=== PATIENT | female | born 1940 | race Caucasian/White ===

== ENCOUNTER → 2018-05-17 | Outpatient (CLI) | payer MEDICARE, OTHER ==
[~2018-05-17] MED LIST: AMLODIPINE 2.5 PO; ASPI81CH; ASPI81CH PO; BENA20 PO; CALC1.25T PO; CHOL10002 PO; ENOX40I SC; FISH1000 PO; FLAX PO; GLUCOSAMINE/MSM PO; HYDACE10B PO; MAXIMUM DAILY1 EACH PO; MECL25 PO; ONDA8 PO; PYRI100 PO; RANI150 PO; VOLTAREN 1% GEL TOP; [UNRECOGNIZED DRUG - OTHER] PO
[2018-05-17 10:42] LABS: BASOPHILS ABSOLUTE AUTO 0.04 K/mm3 (0.00-0.23); BASOPHILS PERCENT AUTO 0 % (0-2); EOSINOPHILS ABSOLUTE AUTO 0.22 K/mm3 (0.00-0.68); EOSINOPHILS PERCENT AUTO 3 % (0-6); Hematocrit 36.2 % (33.0-51.0); Hemoglobin 12.5 g/dL (11.5-16.0); IMMATURE GRAN ABSOLUTE AUTO 0.03 K/mm3 (0.00-0.10); IMMATURE GRAN PERCENT AUTO 0 % (0-1); LYMPHOCYTES ABSOLUTE AUTO 1.31 K/mm3 (0.84-5.20); LYMPHOCYTES PERCENT AUTO 15 % (21-46); MONOCYTES ABSOLUTE AUTO 0.86 K/mm3 (0.16-1.47); MONOCYTES PERCENT AUTO 10 % (4-13); Mean Corpuscular HGB 30.9 pg (26.0-34.0); Mean Corpuscular HGB Conc 34.5 g/dL (31.5-36.5); Mean Corpuscular Volume 89 fL (80-100); Mean Platelet Volume 9.4 fL (9.1-12.4); NEUTROPHILS ABSOLUTE AUTO 6.43 K/mm3 (1.96-9.15); NEUTROPHILS PERCENT AUTO 72 % (41-73); Platelet Count 244 K/mm3 (150-400); RDW Coefficient Variation 14.2 % (11.7-14.2); RDW Standard Deviation 46.7 fL (35.1-46.3); Red Blood Cell Count 4.05 M/mm3 (3.80-5.20); White Blood Cell Count 8.89 K/mm3 (4.00-11.30)
[2018-05-17 10:53] LABS: Albumin, Blood 3.5 g/dL (3.4-5.0); Albumin/Globulin Ratio 0.9 (0.8-1.8); Bilirubin, Total 0.4 mg/dL (0.1-1.0); Bun/Creatinine Ratio 11.9 (12.0-20.0); Calcium, Blood 8.7 mg/dL (8.5-10.1); Creatinine, Blood 1.09 mg/dL (0.40-1.00); Globulin, Blood 4.1 g/dL (2.2-4.0); Potassium, Blood 3.9 mmol/L (3.5-5.5); Total Protein, Blood 7.6 g/dL (6.4-8.2)
[2018-05-17 11:51] LABS: Red Blood Cells, Urine 0-2 /hpf (0-2); White Blood Cells, Urine 0-2 /hpf (0-5)
[2018-05-17 11:52] LABS: Bacteria Not Seen /hpf; Squamous Epithelial Cells Rare /hpf (Few)
[2018-05-17 15:21] LABS: Adenovirus F 40/41 Not Detected (NOT DETECT); Astrovirus Not Detected (NOT DETECT); Campylobacter Sp Not Detected (NOT DETECT); Cryptosporidium Not Detected (NOT DETECT); Cyclospora Cayetanensis Not Detected (NOT DETECT); E. Coli O157 Not Detected (NOT DETECT); Entamoeba Histolytica Not Detected (NOT DETECT); Enteroaggregative E. coli-EAEC Not Detected (NOT DETECT); Enteropathogenic E. coli-EPEC Not Detected (NOT DETECT); Enterotoxigenic E. coli-ETEC Not Detected (NOT DETECT); Giardia Lamblia Not Detected (NOT DETECT); Norovirus GI/GII Not Detected (NOT DETECT); Plesiomonas Shigelloides Not Detected (NOT DETECT); Rotavirus A Not Detected (NOT DETECT); Salmonella Sp Not Detected (NOT DETECT); Sapovirus Not Detected (NOT DETECT); Shiga Toxin-prod E. coli-STEC Not Detected (NOT DETECT); Shigella/Enteroin E. coli-EIEC Not Detected (NOT DETECT); Vibrio Cholerae Not Detected (NOT DETECT); Vibrio Sp Not Detected (NOT DETECT); Yersinia Enterocolitica Not Detected (NOT DETECT)
== END | disposition home or self-care (01) ==
LOC: LAB EV 10:38 → LAB SHORT 10:38
PROVIDERS: General Practice
DX: K57.92 Diverticulitis of intestine, part unspecified, without perforation or abscess without bleeding (principal); R10.32 Left lower quadrant pain; R82.90 Unspecified abnormal findings in urine
CPT/HCPCS: 80053; 81015; 85025; 87086; 87507

== ENCOUNTER 2018-11-28 06:01 | Day surgery (SDC) | payer MEDICARE, OTHER ==
[~2018-11-28] VITALS: Ht 160 cm; Wt 80.9 kg
[~2018-11-28 06:01] MED LIST changes: +Azor 5-20 MG T1 EACH PO; +COQ1050 MG PO; -FISH1000 PO; +Fish Oil PO; +GLUCOSAMINE CH1 EAC3 PO; +OCEAN SPRAY; -RANI150 PO; +SYSTANE GEL EYE10 ML BOTHEYES; +TURMERIC PO; +VITAMIN B PO; +Zantac150 MG PO; +[UNRECOGNIZED DRUG - CODE] PO
--- NOTE | 2018-11-28 06:28 | NUR ---
INTO SDS. ADMISSION STARTED TO UNIT Surgical site prepped with 2% Chlorhexidine cloth wipe. Lungs clear T/O to Auscultation. History, Chart, Medications and Allergies reviewed before start of procedure.Patient confirms NPO status and agrees with scheduled surgery.
--- NOTE | 2018-11-28 07:45 | NUR ---
INTERNAL MEDICINE SPECIALIST HERE TO SEE PATIENT AT 0732 AND THEN PATIENT UP TO BATHROOM AFTER SEEING INTERNAL MEDICINE SPECIALIST.
--- NOTE | 2018-11-28 08:41 | NUR ---
11/28/18 0840 Juanjose Mckeon SPINAL ATTEMPTED PER DR. MARIA.
--- NOTE | 2018-11-28 11:55 | NUR ---
1130 OUT O BED 2 PERSON ASSIST OOB TO COMMODE. PATIENT STANDBY ASSIST, SEADY ON FEET. PATIENT VOIDED CLEAR YELLOW URINE. PATIENT REPORTS PAIN 5/10 MEDICATED OR PAIN. PATIENT DENIES NAUSEA
--- NOTE | 2018-11-28 17:48 | NUR ---
summary PATIENT SITTING IN CHAIR, REPORTS PAIN LEVEL IS CURRENTLY 3, DENIES NAUSEA. PATIENT UP TO COMMODE WITH 1 PERSON ASSIST TO VOID
[2018-11-29 04:27] LABS: BASOPHILS ABSOLUTE AUTO 0.03 K/mm3 (0.00-0.23); BASOPHILS PERCENT AUTO 0 % (0-2); EOSINOPHILS ABSOLUTE AUTO 0.07 K/mm3 (0.00-0.68); EOSINOPHILS PERCENT AUTO 1 % (0-6); Hematocrit 34.1 % (33.0-51.0); Hemoglobin 11.7 g/dL (11.5-16.0); IMMATURE GRAN ABSOLUTE AUTO 0.03 K/mm3 (0.00-0.10); IMMATURE GRAN PERCENT AUTO 0 % (0-1); LYMPHOCYTES ABSOLUTE AUTO 1.11 K/mm3 (0.84-5.20); LYMPHOCYTES PERCENT AUTO 11 % (21-46); MONOCYTES PERCENT AUTO 10 % (4-13); Mean Corpuscular HGB Conc 34.3 g/dL (31.5-36.5); Mean Corpuscular Volume 90 fL (80-100); Mean Platelet Volume 9.2 fL (9.1-12.4); NEUTROPHILS ABSOLUTE AUTO 7.92 K/mm3 (1.96-9.15); NEUTROPHILS PERCENT AUTO 78 % (41-73); Platelet Count 212 K/mm3 (150-400); RDW Coefficient Variation 14.6 % (11.7-14.2); RDW Standard Deviation 48.4 fL (35.1-46.3); Red Blood Cell Count 3.78 M/mm3 (3.80-5.20); White Blood Cell Count 10.16 K/mm3 (4.00-11.30)
[2018-11-29 04:47] LABS: Bun/Creatinine Ratio 13.8 (12.0-20.0); Calcium, Blood 8.9 mg/dL (8.5-10.1); Creatinine, Blood 1.09 mg/dL (0.40-1.00); Magnesium, Blood 2.1 mg/dL (1.6-2.4)
--- NOTE | 2018-11-29 07:36 | NUR ---
SHIFT SUMMARY PT A&O X4 T/O SHIFT. POD#1 L TKA; DRESSING CDI; CRYOTHERAPY TO L KNEE; PPPX4; PAIN MANAGED PER EMAR. PT DENIED NAUSEA, SOB, CP AND N/T IN EXT T/O SHIFT. UP WITH FWW, SBA AND GB TO TOILET. SCD'S AND BOBBY'S TO BLE'S. CALL LIGHT IN REACH; PT DEMONSTRATES USE. REPORT GIVEN TO DAY SHIFT RN.
--- NOTE | 2018-11-29 08:05 | NUR ---
DRESSING CHANGE DR OLIVAS HERE, REMOVED POST OP DRESSING AND APPLIED AQUACELL TO LEFT KNEE
[2018-11-29] MEDS ORDERED: Norco 5-325 Ta1 EACH PO (08:36)
[2018-11-29] MEDS ORDERED: ENOX40I SC (08:36)
[2018-11-29] MEDS ORDERED: ASPI325EC PO (08:37)
[2018-11-29] MEDS ORDERED: PROM25 PO (08:37)
--- NOTE | 2018-11-29 14:48 | NUR ---
1435 discharged home accompanied by daughter
--- NOTE | 2018-11-29 15:01 | NUR ---
Patient is sitting on a chair with daughter bedside. I conducted a life review, explored patient's belief system and established therapuetic alliance. Patient shared about the loss of her and got a bit teary eyed. Patient also shared about her surgery and where her family is and what they are up to. I listened empathically, and provided grief support, pastoral rehab/pre vocational counselor and prayer. Patient responded well and displayed evidence of restored hope.
== END 2018-11-29 14:38 | disposition home or self-care (01) ==
LOC: ORSCMMR 06:01 → ORD 07:30 → ORSCMMR 11:06 → SURS 11:06 → ORSCMMR 11-29 14:38
PROVIDERS: Orthopaedic Surgery
PROC: 8E0YXBZ Computer Assisted Procedure of Lower Extremity (ICD-10-PCS; principal; 2018-11-28 07:30)
PROC: 0SRD0J9 Replacement of Left Knee Joint with Synthetic Substitute, Cemented, Open Approach (ICD-10-PCS; principal; 2018-11-28 07:30)
DX: M17.12 Unilateral primary osteoarthritis, left knee (principal); I10 Essential (primary) hypertension; K21.9 Gastro-esophageal reflux disease without esophagitis; Z79.82 Long term (current) use of aspirin; Z79.899 Other long term (current) drug therapy
CPT/HCPCS: 36415; 73560-LT; 80048; 83735; 85025; 88300; 97110; 97116; 97162; A9270-GY; C1713; C1776; J0171; J0690; J0735; J1100; J1650; J1885; J2250; J2370; J2405; J2704; J2795; J3010; J3370; J7120

== ENCOUNTER → 2019-03-24 | Outpatient (CLI) | payer MEDICARE, OTHER ==
[~2019-03-24] MED LIST changes: +ASPI325EC PO; +Norco 5-325 Ta1 EACH PO; +PROM25 PO
[2019-03-25 13:37] LABS: Stool Occult Bld Immuno 1 Negative (NEGATIVE)
== END | disposition home or self-care (01) ==
LOC: LAB 08:20 → LAB SHORT 08:20
PROVIDERS: Family Medicine
DX: Z12.11 Encounter for screening for malignant neoplasm of colon (principal)
CPT/HCPCS: G0328

== ENCOUNTER 2020-05-29 10:18 | Day surgery (SDC) | payer MEDICARE, OTHER ==
[~2020-05-29] VITALS: Ht 157.9 cm; Wt 78.9 kg
[~2020-05-29 10:18] MED LIST changes: +EDARBI80 MG
[2020-05-29] MEDS ORDERED: AMLO5 PO (11:03)
[2020-05-29] MEDS ORDERED: FAMO10 PO (11:04)
--- NOTE | 2020-05-29 11:24 | NUR ---
05/29/20 1124 Kimberly Sanon BUPIVACAINE 0.5% 30 MLS MIXED WITH EPI 0.15ML TO MAKE BUPIVACAINE 0.5% 1:200,[address] ARGUELLES.
== END 2020-05-29 12:58 | disposition home or self-care (01) ==
LOC: ORSCSDS 10:18
PROVIDERS: Podiatrist Foot & Ankle Surgery
PROC: 0SGM04Z Fusion of Right Metatarsal-Phalangeal Joint with Internal Fixation Device, Open Approach (ICD-10-PCS; principal; 2020-05-29 11:30)
DX: M20.21 Hallux rigidus, right foot (principal); M20.5X1 Other deformities of toe(s) (acquired), right foot; I10 Essential (primary) hypertension; N18.9 Chronic kidney disease, unspecified; Z79.899 Other long term (current) drug therapy
CPT/HCPCS: C1713; C1769; J0171; J0690; J1100; J1885; J2405; J2704; J3010; J7120

== ENCOUNTER → 2021-03-16 | Outpatient (CLI) | payer MEDICARE, OTHER ==
[~2021-03-16] MED LIST changes: +AMLO5 PO; +FAMO10 PO
== END | disposition home or self-care (01) ==
LOC: LAB 15:43 → LAB SHORT 15:43
DX: C44.319 Basal cell carcinoma of skin of other parts of face (principal)
CPT/HCPCS: 88305

== ENCOUNTER 2021-08-09 12:14 | Emergency (ER) | payer MEDICARE, OTHER ==
[~2021-08-09] VITALS: Ht 157.5 cm; Wt 81.7 kg
[2021-08-09 12:55] LABS: BASOPHILS ABSOLUTE AUTO 0.07 K/mm3 (0.00-0.23); BASOPHILS PERCENT AUTO 1 % (0-2); EOSINOPHILS ABSOLUTE AUTO 0.13 K/mm3 (0.00-0.68); EOSINOPHILS PERCENT AUTO 2 % (0-6); Hematocrit 39.8 % (33.0-51.0); Hemoglobin 13.6 g/dL (11.5-16.0); IMMATURE GRAN ABSOLUTE AUTO 0.02 K/mm3 (0.00-0.10); IMMATURE GRAN PERCENT AUTO 0 % (0-1); LYMPHOCYTES ABSOLUTE AUTO 1.29 K/mm3 (0.84-5.20); LYMPHOCYTES PERCENT AUTO 20 % (21-46); MONOCYTES ABSOLUTE AUTO 0.54 K/mm3 (0.16-1.47); MONOCYTES PERCENT AUTO 8 % (4-13); Mean Corpuscular HGB 30.4 pg (26.0-34.0); Mean Corpuscular HGB Conc 34.2 g/dL (31.5-36.5); Mean Corpuscular Volume 89 fL (80-100); Mean Platelet Volume 9.7 fL (9.1-12.4); NEUTROPHILS ABSOLUTE AUTO 4.49 K/mm3 (1.96-9.15); NEUTROPHILS PERCENT AUTO 69 % (41-73); Platelet Count 244 K/mm3 (150-400); RDW Coefficient Variation 14.9 % (11.7-14.2); RDW Standard Deviation 48.6 fL (35.1-46.3); Red Blood Cell Count 4.47 M/mm3 (3.80-5.20); White Blood Cell Count 6.54 K/mm3 (4.00-11.30)
[2021-08-09 13:21] LABS: Albumin, Blood 3.9 g/dL (3.4-5.0); Bilirubin, Total 0.3 mg/dL (0.1-1.0); Bun/Creatinine Ratio 15.2 (12.0-20.0); Calcium, Blood 9.7 mg/dL (8.5-10.1); Creatinine, Blood 1.38 mg/dL (0.40-1.00); Potassium, Blood 4.4 mmol/L (3.5-5.5); Total Protein, Blood 7.9 g/dL (6.4-8.2)
[2021-08-09] MEDS ORDERED: Pepcid20 MG PO (16:04)
== END 2021-08-09 16:20 | disposition home or self-care (01) ==
LOC: ER 12:14
PROVIDERS: Physician Assistant
DX: K44.9 Diaphragmatic hernia without obstruction or gangrene (principal); R42 Dizziness and giddiness; Z88.2 Allergy status to sulfonamides; Z88.8 Allergy status to other drugs, medicaments and biological substances; Z88.5 Allergy status to narcotic agent; Z91.018 Allergy to other foods; Z79.899 Other long term (current) drug therapy; I10 Essential (primary) hypertension
CPT/HCPCS: 36415; 71045; 71275; 80053; 84484; 85025; 93005; 93010; 99285-25; Q9967

== ENCOUNTER → 2022-03-07 | Outpatient (CLI) | payer MEDICARE, OTHER ==
[~2022-03-07] MED LIST changes: +Pepcid20 MG PO; +SUCR1 PO
== END | disposition home or self-care (01) ==
LOC: LAB 13:42 → LAB SHORT 13:42
DX: M54.50 Low back pain, unspecified (principal); R82.998 Other abnormal findings in urine
CPT/HCPCS: 87077; 87086; 87186

== ENCOUNTER → 2022-09-20 | Outpatient (CLI) | payer MEDICARE, OTHER | END | disposition home or self-care (01) | LOC: LAB 17:14 → LAB SHORT 17:14 | DX: N30.00 Acute cystitis without hematuria (principal) | CPT/HCPCS: 87077; 87086; 87186 ==

== ENCOUNTER → 2022-10-10 | Outpatient (CLI) | payer MEDICARE, OTHER | END | disposition home or self-care (01) | LOC: LAB SHORT 13:40 → LAB 13:40 | DX: N39.0 Urinary tract infection, site not specified (principal) | CPT/HCPCS: 87086 ==

== ENCOUNTER → 2023-06-14 | Outpatient (CLI) | payer MEDICARE, OTHER | LOC: LAB 11:08 → LAB SHORT 11:08 | DX: N10 Acute pyelonephritis (principal) | CPT/HCPCS: 87086 ==

== ENCOUNTER → 2023-08-07 | Outpatient (CLI) | payer MEDICARE, OTHER | END | disposition home or self-care (01) | LOC: LAB 13:23 → LAB SHORT 13:23 | DX: N39.0 Urinary tract infection, site not specified (principal) | CPT/HCPCS: 87086 ==

== ENCOUNTER 2023-11-15 12:49 | Emergency (ER) | payer MEDICARE, OTHER ==
[~2023-11-15] VITALS: Ht 162.6 cm; Wt 88.0 kg
[2023-11-15 12:50] VITALS: BP 209/86
[2023-11-15 13:11] LABS: BASOPHILS ABSOLUTE AUTO 0.07 K/mm3 (0.00-0.23); BASOPHILS PERCENT AUTO 1 % (0-2); EOSINOPHILS ABSOLUTE AUTO 0.13 K/mm3 (0.00-0.68); EOSINOPHILS PERCENT AUTO 2 % (0-6); Hematocrit 41.2 % (33.0-51.0); Hemoglobin 14.2 g/dL (11.5-16.0); IMMATURE GRAN ABSOLUTE AUTO 0.03 K/mm3 (0.00-0.10); IMMATURE GRAN PERCENT AUTO 0 % (0-1); LYMPHOCYTES ABSOLUTE AUTO 1.54 K/mm3 (0.84-5.20); LYMPHOCYTES PERCENT AUTO 21 % (21-46); MONOCYTES ABSOLUTE AUTO 0.64 K/mm3 (0.16-1.47); MONOCYTES PERCENT AUTO 9 % (4-13); Mean Corpuscular HGB 30.5 pg (26.0-34.0); Mean Corpuscular HGB Conc 34.5 g/dL (31.5-36.5); Mean Corpuscular Volume 89 fL (80-100); Mean Platelet Volume 9.4 fL (9.1-12.4); NEUTROPHILS ABSOLUTE AUTO 4.97 K/mm3 (1.96-9.15); NEUTROPHILS PERCENT AUTO 67 % (41-73); Platelet Count 230 K/mm3 (150-400); RDW Coefficient Variation 14.3 % (11.7-14.2); Red Blood Cell Count 4.65 M/mm3 (3.80-5.20); White Blood Cell Count 7.38 K/mm3 (4.00-11.30)
[2023-11-15 13:40] LABS: Albumin, Blood 3.9 g/dL (3.4-5.0); Bilirubin, Total 0.4 mg/dL (0.1-1.0); Bun/Creatinine Ratio 14.2 (12.0-20.0); Calcium, Blood 9.1 mg/dL (8.5-10.1); Creatinine, Blood 0.99 mg/dL (0.40-1.00); Globulin, Blood 3.9 g/dL (2.2-4.0); Potassium, Blood 3.8 mmol/L (3.5-5.5); Total Protein, Blood 7.8 g/dL (6.4-8.2)
[2023-11-15] MEDS ORDERED: Ondansetron HCl 2 MG / ML 2ML Vial IV ONE (16:00)
[2023-11-15] MEDS ORDERED: HYDROcodone 5-APAP 325 TAB PO ONE (16:00)
[2023-11-15] MEDS ORDERED: HYDR1TAB94 PO (17:41)
[2023-11-15] MEDS ORDERED: RX Prepack 6 Tabs Oxycodone 5mg UD ONE (17:55)
[2023-11-15] MEDS ORDERED: RX Prepack 2 Tabs Ondansetron ODT 4MG UD ONE (17:55)
[2023-11-15] MEDS ORDERED: NS 1,000 ML IV ONE (20:52)
== END 2023-11-15 18:15 | disposition home or self-care (01) ==
LOC: ER 12:49
PROVIDERS: Physician Assistant
DX: S42.251A Displaced fracture of greater tuberosity of right humerus, initial encounter for closed fracture (principal); S42.211A Unspecified displaced fracture of surgical neck of right humerus, initial encounter for closed fracture; W18.39XA Other fall on same level, initial encounter; I10 Essential (primary) hypertension; Z88.2 Allergy status to sulfonamides; Z88.8 Allergy status to other drugs, medicaments and biological substances; Z88.5 Allergy status to narcotic agent; Z91.018 Allergy to other foods; Z79.899 Other long term (current) drug therapy
CPT/HCPCS: 29105; 36415; 73060; 80053; 84484; 85025; 93005; 93010; 96374-59; 99284-25; A9270; J2405; J7030

== ENCOUNTER 2023-12-06 10:20 | Emergency (ER) | payer MEDICARE, OTHER ==
[~2023-12-06] VITALS: Ht 160 cm; Wt 83.9 kg
[~2023-12-06 10:20] MED LIST changes: +HYDR1TAB94 PO
[2023-12-06 10:32] VITALS: BP 195/77
== END 2023-12-06 11:28 | disposition home or self-care (01) ==
LOC: ER 10:20
DX: I12.9 Hypertensive chronic kidney disease with stage 1 through stage 4 chronic kidney disease, or unspecified chronic kidney disease (principal); N18.9 Chronic kidney disease, unspecified; M19.90 Unspecified osteoarthritis, unspecified site; Z79.899 Other long term (current) drug therapy; Z88.2 Allergy status to sulfonamides; Z88.5 Allergy status to narcotic agent; Z91.018 Allergy to other foods; Z88.8 Allergy status to other drugs, medicaments and biological substances
CPT/HCPCS: 99282

== ENCOUNTER 2025-03-10 12:14 | Inpatient (IN) | payer MEDICARE, OTHER ==
[~2025-03-10] VITALS: Ht 162.6 cm; Wt 94.8 kg
[2025-03-10] MEDS ORDERED: OLME20 PO (12:45)
[2025-03-10] MEDS ORDERED: PROP60 PO (12:46)
[2025-03-10] MEDS ORDERED: POTCHL20ER PO (12:47)
[2025-03-10] MEDS ORDERED: FURO40 PO (12:48)
[2025-03-10 12:53] LABS: BASOPHILS ABSOLUTE AUTO 0.06 K/mm3 (0.00-0.23); BASOPHILS PERCENT AUTO 1 % (0-2); EOSINOPHILS ABSOLUTE AUTO 0.27 K/mm3 (0.00-0.68); EOSINOPHILS PERCENT AUTO 4 % (0-6); Hematocrit 39.3 % (33.0-51.0); Hemoglobin 12.9 g/dL (11.5-16.0); IMMATURE GRAN ABSOLUTE AUTO 0.02 K/mm3 (0.00-0.10); IMMATURE GRAN PERCENT AUTO 0 % (0-1); LYMPHOCYTES ABSOLUTE AUTO 1.22 K/mm3 (0.84-5.20); LYMPHOCYTES PERCENT AUTO 16 % (21-46); MONOCYTES ABSOLUTE AUTO 0.67 K/mm3 (0.16-1.47); MONOCYTES PERCENT AUTO 9 % (4-13); Mean Corpuscular HGB Conc 32.8 g/dL (31.5-36.5); Mean Corpuscular Volume 91 fL (80-100); NEUTROPHILS ABSOLUTE AUTO 5.50 K/mm3 (1.96-9.15); NEUTROPHILS PERCENT AUTO 71 % (41-73); NRBC ABSOLUTE 0.00 K/mm3 (0.00-0.02); NRBC Auto 0.0 /100 WBC (0.0-0.2); Platelet Count 216 K/mm3 (150-400); RDW Coefficient Variation 14.9 % (11.7-14.2); RDW Standard Deviation 50.0 fL (35.1-46.3)
[2025-03-10 13:46] LABS: Anion Gap 7.0 mmol/L (3-11); Blood Urea Nitrogen 30.0 mg/dL (8-24); CO2, Blood 26.0 mmol/L (21-32); Calcium, Blood 9.1 mg/dL (8.5-10.1); Chloride, Blood 110.0 mmol/L (98-108); Creatinine, Blood 1.6 mg/dL (0.40-1.00); Glucose, Blood 107.0 mg/dL (70-99); Magnesium, Blood 2.8 mg/dL (1.6-2.4); Potassium, Blood 4.7 mmol/L (3.5-5.5); Sodium, Blood 138.0 mmol/L (136-145); Thyroid Stimulating Hormone 3.76 uIU/mL (0.360-4.800)
[2025-03-10] MEDS ORDERED: FLU VACC TS2025(65UP)/MF59C/PF 45 MCG/0.5 ML SYRINGE IM SCH (14:40)
[2025-03-10 16:10] VITALS: BP 158/56
[2025-03-10] MEDS ORDERED: MULVITA PO (16:12)
[2025-03-10] MEDS ORDERED: VITAMIN C PO (16:13)
[2025-03-10 20:35] VITALS: BP 163/48
[2025-03-10] MEDS ORDERED: Calcium Carbonate 1,250 MG TABLET PO SCH (21:00)
[2025-03-11] VITALS (7 sets, daily range): BP systolic 147–168; BP diastolic 43–56
[2025-03-11 05:02] LABS: BASOPHILS ABSOLUTE AUTO 0.08 K/mm3 (0.00-0.23); BASOPHILS PERCENT AUTO 1 % (0-2); EOSINOPHILS ABSOLUTE AUTO 0.36 K/mm3 (0.00-0.68); EOSINOPHILS PERCENT AUTO 5 % (0-6); Hematocrit 35.5 % (33.0-51.0); Hemoglobin 11.7 g/dL (11.5-16.0); IMMATURE GRAN ABSOLUTE AUTO 0.02 K/mm3 (0.00-0.10); IMMATURE GRAN PERCENT AUTO 0 % (0-1); LYMPHOCYTES ABSOLUTE AUTO 1.42 K/mm3 (0.84-5.20); LYMPHOCYTES PERCENT AUTO 21 % (21-46); MONOCYTES ABSOLUTE AUTO 0.65 K/mm3 (0.16-1.47); MONOCYTES PERCENT AUTO 9 % (4-13); Mean Corpuscular HGB Conc 33.0 g/dL (31.5-36.5); Mean Corpuscular Volume 90 fL (80-100); NEUTROPHILS ABSOLUTE AUTO 4.39 K/mm3 (1.96-9.15); NEUTROPHILS PERCENT AUTO 63 % (41-73); NRBC ABSOLUTE 0.00 K/mm3 (0.00-0.02); NRBC Auto 0.0 /100 WBC (0.0-0.2); Platelet Count 190 K/mm3 (150-400); RDW Coefficient Variation 14.7 % (11.7-14.2); RDW Standard Deviation 49.0 fL (35.1-46.3)
[2025-03-11 05:55] LABS: Alanine Aminotransfer (ALT/SGP 17.0 U/L (12-78); Albumin, Blood 3.2 g/dL (3.4-5.0); Albumin/Globulin Ratio 0.9 (0.8-1.8); Anion Gap 10.0 mmol/L (3-11); Aspartate Aminotrans (AST/SGOT 16.0 U/L (12-37); Bilirubin, Total 0.4 mg/dL (0.1-1.0); Blood Urea Nitrogen 28.0 mg/dL (8-24); CO2, Blood 25.0 mmol/L (21-32); Calcium, Blood 8.9 mg/dL (8.5-10.1); Chloride, Blood 105.0 mmol/L (98-108); Creatinine, Blood 1.57 mg/dL (0.40-1.00); Globulin, Blood 3.4 g/dL (2.2-4.0); Glucose, Blood 108.0 mg/dL (70-99); Potassium, Blood 4.3 mmol/L (3.5-5.5); Sodium, Blood 136.0 mmol/L (136-145); Total Protein, Blood 6.6 g/dL (6.4-8.2)
--- NOTE | 2025-03-11 07:26 | NUR ---
SHIFT SUMMARY PT LYING IN BED, AWAKE, ALERT AND ORIENTED. AFEBRILE. MOVES EXTREMITIES WITH DIFFICULTY. PT HAS PAIN IN RIGHT SHOULDER. PT HAD TROUBLE SLEEPING, POSSIBLY DUE TO URINARY RETENTION/FREQUENCY AND THE UNCOMFORTABLE HOSPITAL BED AND PILLOW- PT SLEEPS ON AN EXPENSIVE MATTRESS AND PILLOW. LATE IN SHIFT, PT STATED THAT HER TROUBLE SLEEPING MAY HAVE BEEN DUE TO ANXIETY. THIS INFO WAS PASSED ON TO DAY RN. PT ALSO LIKES TO SLEEP ON LEFT SIDE BUT WAS WORRIED ABOUT LEFT AC IV WHEN ASKED IF SHE COULD BE PLACED IN THAT POSITION. PT SINUS JUAN WITH POTENTIAL MOBITZ TYPE 1 AV BLOCK (NOT OBSERVED BY THIS RN) AND STABLE BP ALL SHIFT, THOUGH SBP IS ELEVATED (150) AND DBP IS DECREASED (50). PT DENIED CHEST PAIN/PRESSURE THROUGHOUT SHIFT WELL SOB EXCEPT BRIEFLY DURING EXCURSION TO BS. HR STAYED IN RANGE OF 35-43 ALL SHIFT AND PT WAS CONSISTENTLY LIGHTHEADED, THOUGH THE PT STATES THIS IS A CHRONIC ISSUE FOR HER. PT O2 SATURATIONS > 90% ON RA. NO COUGH. NO BM DURING SHIFT. URINE OUTPUT WAS AROUND 1L ESTIMATED. PT INITIALLY HAD TROUBLE URINATING IN BED WITH PUREWICK/BRIEF AND WAS MOVED TO [facility]. LATER, PT WAS ABLE TO PRODUCE URINE WHILE LYING. LABS THIS AM SHOWED CONTINUED, STABLE ELEVATION OF BUN/CREATININE. MAGNESIUM ORDER WAS ADDED ON LATE DUE TO PREVIOUS VALUE OF 2.8. BEDSIDE SHIFT REPORT GIVEN TO FLORENCE DAY RN AND HER RESIDENT RN.
[2025-03-11] MEDS ORDERED: Enoxaparin 30 MG/0.3 ML SYR SC SCH (09:00)
--- NOTE | 2025-03-11 10:00 | NUR ---
PATIENT ALERT AND ORIENTED X4. FOLLOWING COMMANDS. PERRLA. DENIES PAIN. LIMITED ROM IN RIGHT SHOULDER DUE TO PREVIOUS INJURY. UP WITH 2 PERSON ASSIST TO STAND AND PIVOT TO BSC. TELE SHOWING SINUS JUAN WITH HR 30-40'S. DENIES DIZZINESS UPON LAYING. SOME DIZZINESS NOTED WHEN SITTING. BLOOD PRESSURE 140'S/40'S. MILD EDEMA TO BLE. DENIES CHEST PAIN/PRESSURE/PALPITATIONS. DR. WINSTON IN THIS MORNING. CONTINUE TO HOLD PROPANOLOL AND PRIMIDONE. PRIMIDONE DISCONTINUED. ECHO ORDERS IN PLACE. ON ROOM AIR, SATING ABOVE 95%. LUNG SOUNDS DIMINISHED. EVEN AND UNLABORED RESPIRATIONS AT REST. SOB ON EXCERTION. DENIES SOB/COUGH. BOWEL TONES PRESENT. BOWEL MOVEMENT THIS MORNING. ATTENDS IN PLACE. BRI REMOVED THIS AM DUE TO DISCOMFORT. UP TO BSC TO VOID. DENIES ABDOMINAL PAIN/NAUSEA. TOLERTING PO DIET. SKIN PALE WITH SCATTERED MOLES. DENIES NEEDS. CALL LIGHT IN REACH.
--- NOTE | 2025-03-11 17:33 | NUR ---
DR. WINSTON TO BEDSIDE. PLAN FOR THIS RN TO WALK PATIENT AROUND ROOM AND REPORT TELE EVENTS/VITALS TO DR. WINSTON POST WALK. PATIENT UP WALKING WITH THIS RN AND RISK MANAGEMENT INTERNSHIP. 2 PERSON ASSIST WITH WALKER AND GAIT BELT FOR SAFETY. HR UP TO 46 WHEN WALKING. NO INCREASED DIZZINESS REPORTED. WHEN HR WAS HIGH 40'S TELE READING 1ST DEGREE BLOCK, WHEN HR WAS LOW 40'S TELE READING MOBITZS 1, WHEN HR 30'S TELE READING 2:1. DR. WINSTON UPDATED. DR. WINSTON REQUESTING TRANSFER TO HIGHER LEVEL OF CARE FOR PACERMAKER PLACEMENT. MEGAN SHEETS ACCEPTING DOCTOR JUSTIN BENITEZ, PENDING BED AVAILIBILITY. PATIENT AND FAMILY UPDATED. PATIENT EATING DINNER AT THIS TIME AND DENIES NEEDS. CALL LIGHT IN REACH.
[2025-03-12 03:41] VITALS: BP 163/47
[2025-03-12 04:26] LABS: Alanine Aminotransfer (ALT/SGP 20.0 U/L (12-78); Albumin, Blood 3.5 g/dL (3.4-5.0); Albumin/Globulin Ratio 0.9 (0.8-1.8); Anion Gap 11.0 mmol/L (3-11); Aspartate Aminotrans (AST/SGOT 23.0 U/L (12-37); Bilirubin, Total 0.5 mg/dL (0.1-1.0); Blood Urea Nitrogen 27.0 mg/dL (8-24); CO2, Blood 23.0 mmol/L (21-32); Calcium, Blood 9.7 mg/dL (8.5-10.1); Chloride, Blood 106.0 mmol/L (98-108); Creatinine, Blood 1.4 mg/dL (0.40-1.00); Globulin, Blood 3.8 g/dL (2.2-4.0); Glucose, Blood 107.0 mg/dL (70-99); Potassium, Blood 4.9 mmol/L (3.5-5.5); Sodium, Blood 135.0 mmol/L (136-145); Total Protein, Blood 7.3 g/dL (6.4-8.2)
--- NOTE | 2025-03-12 05:57 | NUR ---
Uneventful night. Pt continues in SB with Mobitz Type 1 block. BP high with SBP in 160s - gets oral antihypertensives on days. Mild confusion, easily redirectable. 2x to get to commode. Mild dizziness/lightheadedness. Plan for transfer for pacemaker placement when bed available
[2025-03-12 08:25] VITALS: BP 163/50
[2025-03-12] MEDS ORDERED: Enoxaparin 40 MG/0.4 ML SYR SC SCH (09:00)
[2025-03-12 11:34] VITALS: BP 166/58
--- NOTE | 2025-03-12 12:53 | NUR ---
MORNING NOTE PT IS A&O X4, COOPERATIVE W/ CARE, AND ABLE TO EXPRESS NEEDS. SHE REQUIRES A 2P ASST. TO STAND AND PIVOT TO THE BSC. SHE IS SATTING > 95% ON ROOM AIR. PT DENIES SOB AT REST BUT DOES REPORT MILD DIZZINESS, WHICH SHE HAS BEEN HAVING CONTINUOUSLY. 2ND DEGREE TYPE 1 30'S-40'S ON TELE. BPs ARE STABLE W/ MAPS > 65. PT WILL BE [facility] TRANSFERING TO [facility]. THE PT HAS A BED, BUT THERE STILL NEEDS TO BE A DRMerissa TO . PT'S DAUGHTER AND SON ARE AT BEDSIDE AND UPDATED ON CARE.
[2025-03-12 13:06] VITALS: BP 166/58
--- NOTE | 2025-03-12 14:37 | NUR ---
CARLOS TRANSFER REPORT GIVEN AT 1417 TO SERINA WHO WILL BE ASSUMING CARE OF PT IN RM 359 AT [facility]. PT HAS BEEN IN AND OUT OF A 3RD DEGREE BLOCK LATE THIS MORNING/THIS AFTERNOON, DR. WINSTON MADE AWARE AND PACER PADS PLACED ON PATIENT DIRECTED. FAMILY HAS BEEN MADE AWARE OF TRANSFER. PATIENT'S BELONGINGS PACKED AND TAKEN BY FAMILY, CELL PHONE SENT WITH PATIENT ON [facility]. NO FURTHER NOTES.
== END 2025-03-12 14:35 | disposition short-term general hospital (02) | DRG 310 ==
LOC: ER 12:14 → PCU 14:38
PROVIDERS: Emergency Medicine; Student in an Organized Health Care Education/Training Program; ADMIT Family Medicine
DX: I44.1 Atrioventricular block, second degree (principal); M19.90 Unspecified osteoarthritis, unspecified site; I12.9 Hypertensive chronic kidney disease with stage 1 through stage 4 chronic kidney disease, or unspecified chronic kidney disease; G89.29 Other chronic pain; M54.50 Low back pain, unspecified; R00.1 Bradycardia, unspecified; N18.30 Chronic kidney disease, stage 3 unspecified; E83.41 Hypermagnesemia; N18.32 Chronic kidney disease, stage 3b; G25.0 Essential tremor; I08.0 Rheumatic disorders of both mitral and aortic valves; I27.20 Pulmonary hypertension, unspecified; Z90.710 Acquired absence of both cervix and uterus; Z96.653 Presence of artificial knee joint, bilateral; Z98.890 Other specified postprocedural states; Z79.899 Other long term (current) drug therapy; Z88.2 Allergy status to sulfonamides; Z88.5 Allergy status to narcotic agent; Z88.8 Allergy status to other drugs, medicaments and biological substances; Z91.018 Allergy to other foods; Z85.828 Personal history of other malignant neoplasm of skin
CPT/HCPCS: 36415; 80048; 80053; 83735; 84439; 84443; 84484; 85025; 93005; 93010; 93306; 99285-25; A9270; J1650